=== PATIENT | female | born 1945 | race Caucasian/White ===

== ENCOUNTER → 2021-07-08 | Outpatient (CLI) | payer MEDICARE | LOC: KOH-I 10:47 | DX: R10.9 Unspecified abdominal pain (principal); R14.3 Flatulence | CPT/HCPCS: 74018 ==

== ENCOUNTER → 2021-11-11 | Outpatient (CLI) | payer MEDICARE | LOC: KOH-I 14:59 | DX: N28.1 Cyst of kidney, acquired (principal) | CPT/HCPCS: 76775 ==